=== PATIENT | male | born 1955 | race Caucasian/White ===

== ENCOUNTER 2021-02-19 06:30 | Day surgery (SDC) | payer BC ==
[~2021-02-19] VITALS: Ht 162.6 cm; Wt 83.1 kg
[~2021-02-19 06:30] MED LIST: ASPIRIN EC325 MG PO; AUGMENTIN 875-1 EACH PO; FLOMAX0.4 MG PO; IBUPROFEN800 MG PO; NORCO 5-325 TA1 EACH PO; PERCOCET 7.5-31 EACH PO; TYLENOL325 MG PO
[2021-02-19] MEDS ORDERED: LOSARTAN POTASS25 MG PO (06:45)
--- NOTE | 2021-02-19 08:30 | NUR ---
PT IS ALERT, ORIENTED AND SUPPORTED BY HIS . PT HAS HAD BOTH SCOPES BEFORE AND FELT PREP WAS MUCH EASIER THIS TIME. ALL QUESTIONS ASKED ANSERED. PT DID DECLINE PRAYER, GAVE BLESSING, WILL FOLLOW
--- NOTE | 2021-02-19 08:30 | NUR ---
02/19/21 0830 Asha Malave 3989 PT ARRIVED TO PACU ON 4L VIA MASK, PT WAKES AND IS REORIENTED TO PACU. VSS. PT EASILY BACK TO SLEEP.
--- NOTE | 2021-02-23 09:30 | OR ---
[facility] [address] [place], [place] [address] Signed DATE OF OPERATION: 02/19/2021 SURGEON: Salinas Plascencia MD PREOPERATIVE DIAGNOSES: 1. History of H pylori infection with history of duodenitis and gastritis. 2. Colon surveillance. POSTOPERATIVE DIAGNOSES: 1. Pre-pyloric antral gastritis without evidence of H pylori on CLOtest. 2. Polyps x2 of sigmoid colon, concurrent diverticulosis. PROCEDURES: 1. Esophagogastroduodenoscopy with biopsy. 2. Total colonoscopy to cecum with cold snare polypectomy x1 and cold morcellation polypectomy x1. ANESTHESIA: Intravenous sedation, fentanyl 150 mcg, Versed 8 mg total. INDICATION: This 66-year-old white man is known to me from the past. He last underwent colonoscopy greater than 10 years ago. In addition, he underwent upper endoscopy in 2008. At one time, he had severe pre-pyloric antral gastritis and duodenitis without ulceration. He had no evidence of H pylori based on CLOtest at that time. In June of 2020, he was treated by Dr. Shea, his primary physician for H pylori based on the fecal test. He was not concurrently treated with PPI medication. He is admitted at this time to undergo upper endoscopy to better assess the possibility of recurrent H pylori as well as colonoscopy. He is symptom free as regards to colon. He has no family history of colon cancer. He understands the risks of both procedures including, but not limited to, bleeding, infection, and perforation and wished to proceed. FINDINGS: Upper endoscopy demonstrated pre-pyloric antral gastritis and mild bulbar duodenitis. There was no sign of actual ulcer. CLOtest was -30 minutes postprocedure. He was noted to have a normal esophagus, GE junction and more proximal stomach. Colonoscopy did confirm scattered diverticula of the sigmoid colon and two polyps, one of them is pedunculated, though relatively small. Both were excised. There were no Electronically Signed By: SALINAS PLASCENCIA MD 02/23/21 0930 PATIENT NAME: DOUGLAS MERCHANT OPERATIVE REPORT DATE OF : 59 REPORT #: [id number] PHYSICIAN: SALINAS PLASCENCIA MD PCP: ALEJANDRO SHEA MD REPORT IS CONFIDENTIAL AND NOT TO BE RELEASED WITHOUT AUTHORIZATION [facility] [address] [place], [place] [address] Signed other findings of concern. DESCRIPTION OF PROCEDURE: The patient was brought to the endoscopy suite and placed in lateral decubitus position, given intravenous sedation to the point of slurred speech and nystagmus with full cardiopulmonary monitoring. Lidocaine hypopharyngeal anesthesia had been given already. A bite block was placed. An Olympus video upper endoscope was passed in the hypopharynx. The vocal cords appeared normal. Scope was advanced to the esophagus. Examination throughout showed to be normal. Scope was advanced to the stomach, which was insufflated with air. Rugal folds were normal as was the antral motility. There was quite obvious pre-pyloric antral gastritis, but no evidence of ulceration. The scope was passed in the duodenum. The 2nd and 3rd portions were normal. The bulbar portion showed mild inflammation. The scope was withdrawn after biopsies of the duodenum to allow for biopsies of the antrum. Retroflexed view was undertaken showing a very good flap valve and no sign of proximal gastritis. The scope was withdrawn to the distal esophagus which was biopsied, though appeared normal and biopsy of mid esophagus was undertaken as well. The scope was removed. Plans were made for colonoscopy. Digital rectal examination was undertaken showing asymmetric prostate with only mild enlargement. There is no dominant nodule. An Olympus video colonoscope was passed in the rectum and manipulated throughout the colon noting diverticular change of the sigmoid. There was a small polyp of the sigmoid, which was excised with cold morcellation technique and passed for pathology. The scope was advanced proximally up into the cecum, but the ileocecal valve appeared normal. Irrigation was undertaken as necessary and the scope was carefully withdrawn. The mid descending colon demonstrated diverticular changes once again and once again in the sigmoid was an another small polyp at this time, this one somewhat pedunculated. This was excised with cold snare technique. The specimen was passed for pathology upon withdrawal of scope. The remaining colon and rectum appeared normal otherwise. The scope was removed and the patient was taken to the recovery room in good condition. CONCLUDING DIAGNOSIS: 1. Polyps x2. 2. Diverticulosis. 3. Pre-pyloric antral gastritis. PLAN: No specific therapy regarding the pre-pyloric antral gastritis considering he is asymptomatic. CLOtest shows no evidence of H pylori. If biopsy should prove to show H pylori, consideration will be made for antibiotic therapy as well as acid reduction per generally accepted protocol. As regards to colon, I would recommend a repeat colonoscopy in 5 years sooner if clinically indicated. The patient will return to the Electronically Signed By: SALINAS PLASCENCIA MD 02/23/21 3377 PATIENT NAME: DOUGLAS MERCHANT OPERATIVE REPORT DATE OF : 59 REPORT #: [id number] PHYSICIAN: SALINAS PLASCENCIA MD PCP: ALEJANDRO SHEA MD REPORT IS CONFIDENTIAL AND NOT TO BE RELEASED WITHOUT AUTHORIZATION [address], [place] [address] Signed ongoing care of Dr. Shea. MD ADRIEL Ibanez/MODL /[id number] cc: Alejandro Shea MD Copies: ALEJANDRO SHEA MD ~ Electronically Signed By: SALINAS PLASCENCIA MD 02/23/21929 PATIENT NAME: DOUGLAS MERCHANT OPERATIVE REPORT DATE OF : 59 REPORT #: [id number] PHYSICIAN: SALINAS PLASCENCIA MD PCP: ALEJANDRO SHEA MD REPORT IS CONFIDENTIAL AND NOT TO BE RELEASED WITHOUT AUTHORIZATION
--- NOTE | 2021-02-23 13:42 | PATH ---
[facility] [address] [place], [place] [address] Signed SPECIMEN(S): A DUODENAL BIOPSY SPECIMEN(S): B ANTRUM/PYLORUS BIOPSY SPECIMEN(S): C DISTAL ESOPHAGUS BIOPSY SPECIMEN(S): D MID ESOPHAGUS BIOPSY SPECIMEN(S): E SIGMOID POLYP 1 SPECIMEN(S): F SIGMOID POLYP 2 SPECIMEN SOURCE: A. DUODENAL BIOPSY B. ANTRUM/PYLORUS BIOPSY C. DISTAL ESOPHAGUS BIOPSY D. MID ESOPHAGUS BIOPSY E. SIGMOID POLYP 1 F. SIGMOID POLYP 2 CLINICAL HISTORY: EGD/colonoscopy. Personal history of H. pylori, gastritis and cholecystectomy. Postop Dx: Diverticulosis, polyps x 2. MICROSCOPIC DESCRIPTION: Histologic sections of all submitted blocks are examined by light microscopy. These findings, together with the gross examination, support the pathologic diagnosis. FINAL PATHOLOGIC DIAGNOSIS: A. Duodenum, biopsy: - No significant histopathology. B. Antrum/pylorus, biopsy: - No significant histopathologic alterations. C. Distal esophagus, biopsy: - Portions of unremarkable squamous mucosa. D. Mid esophagus, biopsy: - Reflux esophagitis. - No evidence of Vernon's esophagus. E. Sigmoid, polyp #1, polypectomy: - Multiple fragments of tubular adenoma. - There is no evidence of high-grade dysplasia or malignancy. F. Sigmoid, polyp #2, polypectomy: - Tubular adenoma. - There is no evidence of high-grade dysplasia or malignancy. COMMENT: PATIENT NAME: SHONDADOUGLAS HERIBERTO PATHOLOGY DATE OF : 59 REPORT #: [id number] PHYSICIAN: IONA ROCHE PCP: GENNARO HALL MD REPORT IS CONFIDENTIAL AND NOT TO BE RELEASED WITHOUT AUTHORIZATION [facility] [address] [place], [place] [address] Signed Regarding specimen A, the sections from the duodenal biopsy show portions of duodenal mucosa with long finger-like villi. There is no villous atrophy, crypt hyperplasia or intraepithelial lymphocytosis, making a diagnosis of celiac disease unlikely. There is no evidence of peptic duodenitis, microorganisms, abnormal infiltrates or neoplasia. Regarding specimen B, the sections through the gastric biopsies show fragments of histologically unremarkable antral mucosa. There is no evidence of acute or chronic inflammation. There is no evidence of H. pylori, intestinal metaplasia, abnormal infiltrates or neoplasia. Regarding specimen C, the esophageal biopsy shows normal-appearing squamous epithelium. There is no evidence of acute or chronic inflammation. Regarding specimen D, the sections through the biopsy show strips of reactive appearing squamous mucosa with basal cell hyperplasia. The epithelium is infiltrated by lymphocytes and small numbers of eosinophils. No glandular mucosa or intestinal metaplasia is identified. TWK:em:C2NR GROSS DESCRIPTION: Six specimens are received in six containers, labeled "RH." A. The specimen, labeled "RH, 1," and designated on the requisition "duodenum," is received in formalin and consists of two monsivais soft tissue fragments that measure 0.3 cm in greatest dimension. The specimen is entirely submitted in cassette (A1). B. The specimen, labeled "RH, 2," and designated on the requisition "antrum/pylorus," is received in formalin and consists of two monsivais soft tissue fragments that measure 0.3-0.5 cm in greatest dimension. The specimen is entirely submitted in cassette (B1). C. The specimen, labeled "RH, 3," and designated on the requisition "distal esophagus," is received in formalin and consists of two monsivais soft tissue fragments that measure 0.3-0.4 cm in greatest dimension. The specimen is entirely submitted in cassette (C1). D. The specimen, labeled "RH, 4," and designated on the requisition "mid esophagus," is received in formalin and consists of two thin monsivais soft tissue fragments that measure 0.3-0.4 cm in greatest dimension. The specimen is entirely submitted in cassette (D1). E. The specimen, labeled "RH, 5," and designated on the requisition "sigmoid polyp #1," is received in formalin and consists of two polypoid monsivais soft tissue fragments with vegetative matter that PATIENT NAME: DOUGLAS MERCHANT PATHOLOGY DATE OF : 59 REPORT #: [id number] PHYSICIAN: IONA ROCHE PCP: GENNARO HALL MD REPORT IS CONFIDENTIAL AND NOT TO BE RELEASED WITHOUT AUTHORIZATION [facility] [address] [place], [place] [address] Signed measure 0.3 cm in greatest dimension. The specimen is entirely submitted in cassette (E1). F. The specimen, labeled "RH, 6," and designated on the requisition "sigmoid polyp #2," is received in formalin and consists of one polypoid monsivais soft tissue fragment with vegetative matter that measures 0.6 x 0.4 x 0.7 cm in greatest dimension. The specimen is inked black, bisected, and is entirely submitted in cassette (F1). Note: tissue is friable upon sectioning. AT (under the direct supervision of a pathologist) The Gross Description was prepared using a voice recognition system. The report was reviewed for accuracy; however, sound-alike word errors, addition and/or deletions may occur. If there is any question about this report, please contact Client Services. PERFORMING LABORATORY: The technical component was performed by [facility], [address] [place] [id number] (Insurance Risk Analyst: Cathleen Mead MD; CLIA# [id number]). [facility], [address] [place] [address] (CLIA# [id number]). Diagnostician: Charbel Marie MD Pathologist Electronically Signed 02/23/2021 Copies: ~ PATIENT NAME: DOUGLAS MERCHANT PATHOLOGY DATE OF : 59 REPORT #: [id number] PHYSICIAN: IONA PATHOLOGY PCP: GENNARO HALL MD REPORT IS CONFIDENTIAL AND NOT TO BE RELEASED WITHOUT AUTHORIZATION
== END 2021-02-19 09:05 | disposition home or self-care (01) ==
LOC: DS 06:30 → OPS 06:30
PROVIDERS: ATTEND Surgery
PROC: 0DB28ZX Excision of Middle Esophagus, Via Natural or Artificial Opening Endoscopic, Diagnostic (ICD-10-PCS; 2021-02-19)
PROC: 0DB38ZX Excision of Lower Esophagus, Via Natural or Artificial Opening Endoscopic, Diagnostic (ICD-10-PCS; 2021-02-19)
PROC: 0DBN8ZX Excision of Sigmoid Colon, Via Natural or Artificial Opening Endoscopic, Diagnostic (ICD-10-PCS; 2021-02-19)
PROC: 0DBM8ZX Excision of Descending Colon, Via Natural or Artificial Opening Endoscopic, Diagnostic (ICD-10-PCS; 2021-02-19)
PROC: 0DBN8ZX Excision of Sigmoid Colon, Via Natural or Artificial Opening Endoscopic, Diagnostic (ICD-10-PCS; 2021-02-19)
PROC: 0DB98ZX Excision of Duodenum, Via Natural or Artificial Opening Endoscopic, Diagnostic (ICD-10-PCS; principal; 2021-02-19 06:45)
PROC: 0DB78ZX Excision of Stomach, Pylorus, Via Natural or Artificial Opening Endoscopic, Diagnostic (ICD-10-PCS; 2021-02-19 06:45)
DX: D12.5 Benign neoplasm of sigmoid colon (principal); K20.90 Esophagitis, unspecified without bleeding; K57.30 Diverticulosis of large intestine without perforation or abscess without bleeding; K29.70 Gastritis, unspecified, without bleeding; I10 Essential (primary) hypertension; Z86.19 Personal history of other infectious and parasitic diseases; Z87.19 Personal history of other diseases of the digestive system; Z90.49 Acquired absence of other specified parts of digestive tract
CPT/HCPCS: 99153; G0500; J2250; J3010; J7121

== ENCOUNTER 2021-07-30 04:28 | Emergency (ER) | payer BC ==
[~2021-07-30] VITALS: Ht 162.6 cm; Wt 87.8 kg
[~2021-07-30 04:28] MED LIST changes: +LOSARTAN POTASS25 MG PO
--- OUTSIDE RECORDS SUMMARY | 2021-07-30 04:30 | XMS ---
PreManage Notification: DOUGLAS MERCHANT Security Director Clinical Data Events No recent Security Events currently on file [facility] There are no care providers on record at this time. Chandu has no Care Guidelines for this patient. Odalys VISIT COUNT (12 MO.) 1 RUDOLPH Trimble TOTAL 1 NOTE: Visits indicate total known visits. ED/C VISIT TRACKING (12 MO.) 07/30/2021 04:28 RUDOLPH Shields [place] TYPE: Emergency COMPLAINT: - POST OP PAIN INPATIENT VISIT TRACKING (12 MO.) 07/20/2021 00:10 Radha PELAYO TYPE: Orthopedic COMPLAINT: - SPONDYLOSIS,S/P L5-S1 ALIF STAGE 1 OF 2 DIAGNOSES: - Obesity, unspecified - Headache, unspecified - Radiculopathy, lumbosacral region - Radiculopathy, lumbar region - Essential (primary) hypertension - Benign prostatic hyperplasia without lower urinary tract symptoms - Other chronic pain - Spinal stenosis, lumbosacral region - Other spondylosis with radiculopathy, lumbar region - Body mass index [BMI] 34.0-34.9, adult - Spondylolisthesis, lumbosacral region - Spondylolisthesis, lumbosacral region - Spinal stenosis, lumbar region without neurogenic claudication [email or web address]
[2021-07-30] MEDS ORDERED: LISINOPRIL20 MG PO (04:54)
[2021-07-30] MEDS ORDERED: HYDROCODON-ACE1 EA10 PO (04:54)
[2021-07-30] MEDS ORDERED: HYDROXYZINE PAM25 MG PO (04:55)
[2021-07-30] MEDS ORDERED: BACLOFEN10 MG PO (04:55)
[2021-07-30] MEDS ORDERED: GABAPENTIN300 MG PO (04:55)
== END 2021-07-30 12:40 | disposition short-term general hospital (02) ==
LOC: ED 04:28
DX: G89.18 Other acute postprocedural pain (principal); R10.2 Pelvic and perineal pain; Z98.890 Other specified postprocedural states; I10 Essential (primary) hypertension; F17.200 Nicotine dependence, unspecified, uncomplicated; Z20.822 Contact with and (suspected) exposure to COVID-19
CPT/HCPCS: 36415; 72131; 74177; 80053; 81001; 83690; 85025; 96375; 96376; 99284-25; G0480; J1170; J2405; J7030; Q9967